=== PATIENT | female | born 1965 | race Hispanic/Latino ===

== ENCOUNTER → 2021-07-08 | Outpatient (CLI) | payer OTHER | LOC: MRI 09:42 | PROVIDERS: ATTEND Specialist | DX: M54.41 Lumbago with sciatica, right side (principal) | CPT/HCPCS: 72148 ==

== ENCOUNTER → 2022-12-19 | Outpatient (CLI) | payer OTHER | LOC: RAD 09:50 | PROVIDERS: ATTEND Family Medicine | DX: M79.672 Pain in left foot (principal) ==

== ENCOUNTER 2023-07-13 11:32 | Inpatient (IN) | payer OTHER ==
[~2023-07-13] VITALS: Ht 147.3 cm; Wt 61.7 kg
[2023-07-13] MEDS ORDERED: SODIUM CHLORIDE 0.9% 1000ML 1,000 ML IV STA (12:06)
[2023-07-13] MEDS ORDERED: KETOROLAC TROMETHAMINE 30 MG/ML VIAL ONE (12:15)
[2023-07-13] MEDS ORDERED: ONDANSETRON HCL INJ 2MG/ML 2ML 2 MG/ML VIAL ONE ×2 (12:15→17:09)
[2023-07-13] MEDS ORDERED: FAMOTIDINE 20 MG/2 ML VIAL IV ONE ×2 (12:15→12:16)
[2023-07-13] MEDS ORDERED: ONDANSETRON HCL INJ 2MG/ML 2ML 2 MG/ML VIAL IV ONE (12:15)
[2023-07-13] MEDS ORDERED: KETOROLAC TROMETHAMINE 30 MG/ML VIAL IV ONE (12:15)
[2023-07-13] MEDS ORDERED: SODIUM CHLORIDE 0.9% 1000ML 1,000 ML ONE (12:16)
[2023-07-13] MEDS ORDERED: IOPAMIDOL 370 MG/ML 100 ML INFUS..BTL INJ ONE (12:17)
[2023-07-13] MEDS ORDERED: NOVOLOG MI100 UNIT/1 SC ×2 (12:42)
[2023-07-13] MEDS ORDERED: METOPROLOL SUCC25 MG PO (12:42)
[2023-07-13] MEDS ORDERED: ASPIRIN EC81 MG PO (12:42)
[2023-07-13] MEDS ORDERED: CLOPIDOGREL75 MG PO (12:42)
[2023-07-13] MEDS ORDERED: JARDIANCE10 MG (12:42)
[2023-07-13] MEDS ORDERED: LISINOPRIL5 MG PO (12:42)
[2023-07-13] MEDS ORDERED: METFORMIN HCL500 M2 PO (12:42)
[2023-07-13] MEDS ORDERED: CRESTOR10 MG PO (12:42)
[2023-07-13] MEDS ORDERED: OMEPRAZOLE20 M1 PO (16:28)
[2023-07-13] MEDS ORDERED: MAALOX MAXIMUM355 ML PO (16:28)
[2023-07-13] MEDS ORDERED: ONDANSETRON ODT4 MG PO (16:28)
[2023-07-13] MEDS ORDERED: DIPHENHYDRAMINE HCL INJ 50 MG/ML VIAL IV PRN (17:00)
[2023-07-13] MEDS ORDERED: Morphine 4mg INJECTION 4 MG/ML INJ ONE (17:10)
[2023-07-13] MEDS ORDERED: LACTATED RINGER'S 1,000 ML ONE (17:10)
[2023-07-13] MEDS ORDERED: Morphine 4mg INJECTION 4 MG/ML INJ IV ONE (17:15)
[2023-07-13] MEDS: LACTATED RINGER'S 1,000 ML IV SCH (17:19)
[2023-07-13] MEDS: ONDANSETRON HCL INJ 2MG/ML 2ML 2 MG/ML VIAL IV PRN (17:19)
[2023-07-13 20:30] VITALS: BP 170/83; PULSE 81; RESP 17; TEMP 97.9; O2SAT 96
[2023-07-13 20:46] VITALS: BP 169/69; PULSE 81; RESP 17; TEMP 97.9; O2SAT 95
[2023-07-14] VITALS (9 sets, daily range): BP systolic 132–213; BP diastolic 59–77; PULSE 74–90; RESP 17–18; TEMP 97.9–98.1; O2SAT 93–100
[2023-07-14] MEDS: ENALAPRILAT IV INJ 1.25 MG/ML VIAL IV PRN ×2 (01:36→19:24)
[2023-07-14] MEDS: LACTATED RINGER'S 1,000 ML IV SCH (04:23)
[2023-07-14 06:26] LABS: BASOPHILS # (AUTO) 0.1 (0.0-0.1); BASOPHILS % 0.8 % (0.0-1.0); EOSINOPHILS # (AUTO) 0.3 (0.0-0.4); EOSINOPHILS % 3.6 % (0.0-6.0); HEMATOCRIT 40.5 % (34.2-44.1); HEMOGLOBIN 13.8 g/dL (12.0-16.0); LYMPHOCYTES # (AUTO) 2.4 (1.0-3.2); LYMPHOCYTES % 26.9 % (18.0-39.1); MEAN CORPUSCULAR HGB CONC 34.1 g/dL (31-35); MEAN CORPUSCULAR VOLUME 85.1 fL (81-99); MONOCYTES # (AUTO) 0.5 (0.2-0.8); MONOCYTES % 5.1 % (4.4-11.3); NEUTROPHILS # (AUTO) 5.7 (2.1-6.9); NEUTROPHILS % 63.5 % (38.7-80.0); PLATELET COUNT 181 x10e3/uL (140-360); RED BLOOD COUNT 4.76 x10e6/uL (3.6-5.1); RED CELL DISTRIBUTION WIDTH 13.3 % (11.7-14.4); WHITE BLOOD COUNT 9.01 x10e3/uL (4.8-10.8)
[2023-07-14 06:46] LABS: ALBUMIN 3.4 g/dL (3.5-5.0); ALBUMIN/GLOBULIN RATIO 1.2 (0.8-2.0); ANION GAP 15.9 mmol/L (8-16); CALCIUM 8.9 mg/dL (8.4-10.2); CREATININE, SERUM 0.76 mg/dL (0.57-1.11); POTASSIUM 3.9 mmol/L (3.5-5.1)
[2023-07-14] MEDS: HYDROMORPHONE 1MG/1ML INJ IV PRN ×2 (11:46→20:01)
[2023-07-14] MEDS: ONDANSETRON HCL INJ 2MG/ML 2ML 2 MG/ML VIAL IV PRN ×2 (11:46→20:00)
[2023-07-14] MEDS ORDERED: ALBUTEROL/IPRATROPIUM 3 ML NEB NEB PRN (21:45)
[2023-07-15] VITALS (11 sets, daily range): BP systolic 140–210; BP diastolic 58–79; PULSE 68–81; RESP 15–20; TEMP 97.6–98.1; O2SAT 93–100
[2023-07-15] MEDS: ONDANSETRON HCL INJ 2MG/ML 2ML 2 MG/ML VIAL IV PRN ×2 (05:48→15:51)
[2023-07-15] MEDS: HYDROMORPHONE 1MG/1ML INJ IV PRN ×3 (05:48→22:31)
[2023-07-15 06:23] LABS: ANION GAP 13.8 mmol/L (8-16); CALCIUM 9.1 mg/dL (8.4-10.2); CREATININE, SERUM 0.82 mg/dL (0.57-1.11); MAGNESIUM 1.7 MG/DL (1.3-2.1); POTASSIUM 3.8 mmol/L (3.5-5.1)
[2023-07-15 06:43] LABS: FREE T4 (FREE THYROXINE) 1.06 ng/dL (0.8-1.8); THYROID STIMULATING HORMONE 1.721 uIU/mL (0.350-4.940)
[2023-07-15] MEDS: SODIUM CHLORIDE 0.9% 1000ML 1,000 ML IV SCH (08:31)
[2023-07-15] MEDS: FAMOTIDINE 20 MG/2 ML VIAL IV SCH ×2 (08:32→17:02)
[2023-07-15] MEDS: NICOTINE 14 MG/EA PATCH TOP SCH (08:32)
[2023-07-15] MEDS ORDERED: MAGNESIUM SULF 1GRAM/DEXTROSE 100 ML IV ONE (10:30)
[2023-07-15] MEDS ORDERED: LIDOCAINE HCL 2% LOCAL INJ 5 ML SDV VIAL INJ ONE (13:28)
[2023-07-15] MEDS ORDERED: ROCURONIUM BROMIDE 10 MG/ML 5ML VIAL IV ONE (13:28)
[2023-07-15] MEDS ORDERED: PROPOFOL IV EMULSION 10 MG/ML 20 ML VIAL ONE (13:28)
[2023-07-15] MEDS ORDERED: SEVOFLURANE INHAL SOLN 250 ML PEN BTL ONE (13:28)
[2023-07-15] MEDS ORDERED: DEXAMETHASONE SOD PHOS INJ 4 MG/ML SDV ONE (13:28)
[2023-07-15] MEDS ORDERED: ONDANSETRON HCL INJ 2MG/ML 2ML 2 MG/ML VIAL ONE (13:28)
[2023-07-15] MEDS: CRESTOR 10MG PO SCH (20:22)
[2023-07-16] VITALS (8 sets, daily range): BP systolic 146–196; BP diastolic 51–70; PULSE 70–83; RESP 16–18; TEMP 97.5–98.5; O2SAT 93–100
[2023-07-16] MEDS: SODIUM CHLORIDE 0.9% 1000ML 1,000 ML IV SCH ×3 (00:11→17:07)
[2023-07-16] MEDS: HYDROMORPHONE 1MG/1ML INJ IV PRN ×2 (04:27→21:02)
[2023-07-16 05:56] LABS: BASOPHILS # (AUTO) 0.1 (0.0-0.1); BASOPHILS % 0.9 % (0.0-1.0); EOSINOPHILS # (AUTO) 0.4 (0.0-0.4); EOSINOPHILS % 5.6 % (0.0-6.0); HEMOGLOBIN 12.7 g/dL (12.0-16.0); LYMPHOCYTES # (AUTO) 2.4 (1.0-3.2); LYMPHOCYTES % 36.2 % (18.0-39.1); MEAN CORPUSCULAR HEMOGLOBIN 29.3 pg (28-32); MEAN CORPUSCULAR HGB CONC 34.3 g/dL (31-35); MEAN CORPUSCULAR VOLUME 85.3 fL (81-99); MONOCYTES # (AUTO) 0.5 (0.2-0.8); NEUTROPHILS # (AUTO) 3.2 (2.1-6.9); PLATELET COUNT 177 x10e3/uL (140-360); RED BLOOD COUNT 4.34 x10e6/uL (3.6-5.1); RED CELL DISTRIBUTION WIDTH 13.2 % (11.7-14.4); WHITE BLOOD COUNT 6.61 x10e3/uL (4.8-10.8)
[2023-07-16] MEDS: ENALAPRILAT IV INJ 1.25 MG/ML VIAL IV PRN ×2 (05:56→20:52)
[2023-07-16] MEDS ORDERED: BUPIVACAINE HCL 0.5% INJ 30 ML VIAL INJ ONE (06:16)
[2023-07-16 06:29] LABS: ALBUMIN 3.4 g/dL (3.5-5.0); ALBUMIN/GLOBULIN RATIO 1.3 (0.8-2.0); ANION GAP 13.2 mmol/L (8-16); CALCIUM 8.9 mg/dL (8.4-10.2); CREATININE, SERUM 0.83 mg/dL (0.57-1.11); POTASSIUM 4.2 mmol/L (3.5-5.1)
[2023-07-16] MEDS: ONDANSETRON HCL INJ 2MG/ML 2ML 2 MG/ML VIAL IV PRN ×2 (06:56→21:01)
[2023-07-16] MEDS ORDERED: HYDROCODONE/APAP 5MG-325MG TAB PO PRN (08:00)
[2023-07-16] MEDS ORDERED: ACETAMINOPHEN 325 MG TAB PO PRN (08:00)
[2023-07-16] MEDS ORDERED: ONDANSETRON HCL INJ 2MG/ML 2ML 2 MG/ML VIAL IV PRN (08:00)
[2023-07-16] MEDS ORDERED: DEXTROSE 50% SYRINGE 50 ML IV PRN (08:00)
[2023-07-16] MEDS ORDERED: HYDRALAZINE HCL 20 MG/ML VIAL ONE (08:10)
[2023-07-16] MEDS ORDERED: HYDRALAZINE HCL 20 MG/ML VIAL IV ONE ×2 (08:12)
[2023-07-16] MEDS ORDERED: ONDANSETRON HCL INJ 2MG/ML 2ML 2 MG/ML VIAL IV ONE (08:27)
[2023-07-16] MEDS ORDERED: ONDANSETRON HCL INJ 2MG/ML 2ML 2 MG/ML VIAL ONE (08:28)
[2023-07-16] MEDS ORDERED: METOPROLOL SUCCINATE 25 MG TAB XL PO SCH ×2 (09:00→17:00)
[2023-07-16] MEDS: NICOTINE 14 MG/EA PATCH TOP SCH (09:00)
[2023-07-16] MEDS: INSULIN LISPRO 100 UNIT/1 ML 3ML VIAL SQ SCH ×3 (11:30→20:47)
[2023-07-16] MEDS: FAMOTIDINE 20 MG/2 ML VIAL IV SCH ×2 (11:37→20:52)
[2023-07-16] MEDS ORDERED: FENTANYL CITRATE/PF 100MCG/2 ML INJ ONE (13:49)
[2023-07-16] MEDS: METFORMIN HCL 500 MG TAB CR PO SCH (17:05)
[2023-07-16] MEDS: CRESTOR 10MG PO SCH (20:52)
[2023-07-16] MEDS ORDERED: INSULIN ASPART 70/30 100 UNITS/ML VIAL SC SCH (21:00)
[2023-07-16] MEDS ORDERED: SIMVASTATIN 40 MG TAB PO SCH (21:00)
[2023-07-17 01:05] VITALS: PULSE 78; RESP 20; O2SAT 98
[2023-07-17] MEDS: SODIUM CHLORIDE 0.9% 1000ML 1,000 ML IV SCH (03:53)
[2023-07-17 05:24] VITALS: BP 169/65; PULSE 70; RESP 16; TEMP 97.6; O2SAT 100
[2023-07-17] MEDS: ENALAPRILAT IV INJ 1.25 MG/ML VIAL IV PRN (06:37)
[2023-07-17 07:28] LABS: BASOPHILS # (AUTO) 0.1 (0.0-0.1); BASOPHILS % 0.9 % (0.0-1.0); EOSINOPHILS # (AUTO) 0.2 (0.0-0.4); EOSINOPHILS % 2.2 % (0.0-6.0); HEMOGLOBIN 12.7 g/dL (12.0-16.0); LYMPHOCYTES # (AUTO) 3.1 (1.0-3.2); LYMPHOCYTES % 33.3 % (18.0-39.1); MEAN CORPUSCULAR HEMOGLOBIN 28.8 pg (28-32); MEAN CORPUSCULAR HGB CONC 34.3 g/dL (31-35); MEAN CORPUSCULAR VOLUME 83.9 fL (81-99); MONOCYTES # (AUTO) 0.6 (0.2-0.8); MONOCYTES % 6.2 % (4.4-11.3); NEUTROPHILS # (AUTO) 5.3 (2.1-6.9); NEUTROPHILS % 57.2 % (38.7-80.0); PLATELET COUNT 192 x10e3/uL (140-360); RED BLOOD COUNT 4.41 x10e6/uL (3.6-5.1); RED CELL DISTRIBUTION WIDTH 13.2 % (11.7-14.4); WHITE BLOOD COUNT 9.21 x10e3/uL (4.8-10.8)
[2023-07-17] MEDS: INSULIN LISPRO 100 UNIT/1 ML 3ML VIAL SQ SCH (07:30)
[2023-07-17] MEDS ORDERED: INSULIN ASPART 70/30 100 UNITS/ML VIAL SC SCH (07:30)
[2023-07-17 08:00] VITALS: BP 195/60; PULSE 76; RESP 19; TEMP 98; O2SAT 100
[2023-07-17 08:14] LABS: ALBUMIN 3.4 g/dL (3.5-5.0); ALBUMIN/GLOBULIN RATIO 1.5 (0.8-2.0); ANION GAP 11.7 mmol/L (8-16); CALCIUM 8.8 mg/dL (8.4-10.2); CREATININE, SERUM 0.79 mg/dL (0.57-1.11); MAGNESIUM 1.9 MG/DL (1.3-2.1); PHOSPHORUS 2.7 MG/DL (2.3-4.7); POTASSIUM 3.7 mmol/L (3.5-5.1)
[2023-07-17 08:36] VITALS: BP 195/60; PULSE 76; RESP 19; TEMP 98; O2SAT 100
[2023-07-17] MEDS ORDERED: EMPAGLIFLOZIN 10 MG TABLET PO SCH (09:00)
[2023-07-17] MEDS ORDERED: METOPROLOL SUCCINATE 50 MG TAB XL PO SCH (09:00)
[2023-07-17] MEDS: NICOTINE 14 MG/EA PATCH TOP SCH (09:00)
[2023-07-17] MEDS ORDERED: LISINOPRIL 2.5 MG TAB PO SCH (09:00)
[2023-07-17] MEDS: METFORMIN HCL 500 MG TAB CR PO SCH (09:53)
[2023-07-17] MEDS: FAMOTIDINE 20 MG/2 ML VIAL IV SCH (09:57)
[2023-07-17] MEDS ORDERED: ACETAMINOPHEN325 M1 PO (10:22)
[2023-07-17] MEDS ORDERED: ACETAMINOPHEN-1 EAC4 PO (11:12)
[2023-07-17 11:30] VITALS: BP 176/64; PULSE 76; RESP 18; TEMP 98.2; O2SAT 100
[2023-07-18] MEDS ORDERED: METOCLOPRAMIDE10 MG PO (23:49)
[2023-07-18] MEDS ORDERED: COLACE100 M1 PO (23:49)
[2023-07-18] MEDS ORDERED: CEPHALEXIN500 MG PO (23:49)
== END 2023-07-17 12:02 | disposition home or self-care (01) | DRG 419 ==
LOC: FSED 11:35 → ERHOLD 16:53 → MED/SURG3 18:26 → OBSVTOIN 07-15 09:00 → MED/SURG 07-16 03:50
PROVIDERS: ADMIT Internal Medicine; ATTEND Internal Medicine
PROC: 0FT44ZZ Resection of Gallbladder, Percutaneous Endoscopic Approach (ICD-10-PCS; principal; 2023-07-16 07:09)
DX: K80.00 Calculus of gallbladder with acute cholecystitis without obstruction (principal); I25.10 Atherosclerotic heart disease of native coronary artery without angina pectoris; E11.65 Type 2 diabetes mellitus with hyperglycemia; E78.5 Hyperlipidemia, unspecified; F17.200 Nicotine dependence, unspecified, uncomplicated; E78.00 Pure hypercholesterolemia, unspecified; K59.00 Constipation, unspecified; E83.42 Hypomagnesemia; I11.9 Hypertensive heart disease without heart failure; Z95.5 Presence of coronary angioplasty implant and graft; Z79.82 Long term (current) use of aspirin; Z79.02 Long term (current) use of antithrombotics/antiplatelets; Z79.4 Long term (current) use of insulin; Z79.85 Long-term (current) use of injectable non-insulin antidiabetic drugs; Z79.899 Other long term (current) drug therapy
CPT/HCPCS: 0223U; 36415; 71045; 74177; 76705; 78227; 80048; 80053; 80061; 80076; 81003; 82553; 82948; 83036; 83690; 83735; 84100; 84439; 84443; 84484; 85025; 88304; 93005; 93306; 94799; 96374; 96375; 99284; A9537; G0378; J0690; J1100; J1170; J1200; J1815; J1885; J2001; J2270; J2405; J3475; J7030; Q9967

== ENCOUNTER 2023-07-18 20:37 | Emergency (ER) | payer OTHER ==
[~2023-07-18] VITALS: Ht 147.3 cm; Wt 61.7 kg
[~2023-07-18 20:37] MED LIST: ACETAMINOPHEN-1 EAC4 PO; ACETAMINOPHEN325 M1 PO; ASPIRIN EC81 MG PO; CLOPIDOGREL75 MG PO; CRESTOR10 MG PO; JARDIANCE10 MG; LISINOPRIL5 MG PO; MAALOX MAXIMUM355 ML PO; METFORMIN HCL500 M2 PO; METOPROLOL SUCC25 MG PO; NOVOLOG MI100 UNIT/1 SC; OMEPRAZOLE20 M1 PO; ONDANSETRON ODT4 MG PO
[2023-07-18] MEDS ORDERED: ONDANSETRON HCL INJ 2MG/ML 2ML 2 MG/ML VIAL IV STA (20:59)
[2023-07-18] MEDS ORDERED: Morphine 4mg INJECTION 4 MG/ML INJ IV ONE (21:00)
[2023-07-18] MEDS ORDERED: SODIUM CHLORIDE 0.9% 1000ML 1,000 ML IV ONE (21:00)
[2023-07-18 21:10] LABS: BASOPHILS # (AUTO) 0.1 (0.0-0.1); BASOPHILS % 0.9 % (0.0-1.0); EOSINOPHILS # (AUTO) 0.3 (0.0-0.4); EOSINOPHILS % 2.9 % (0.0-6.0); HEMATOCRIT 46.5 % (34.2-44.1); HEMOGLOBIN 15.8 g/dL (12.0-16.0); LYMPHOCYTES # (AUTO) 2.1 (1.0-3.2); LYMPHOCYTES % 23.2 % (18.0-39.1); MEAN CORPUSCULAR HEMOGLOBIN 28.6 pg (28-32); MEAN CORPUSCULAR VOLUME 84.2 fL (81-99); MONOCYTES # (AUTO) 0.5 (0.2-0.8); MONOCYTES % 5.8 % (4.4-11.3); NEUTROPHILS % 67.1 % (38.7-80.0); PLATELET COUNT 199 x10e3/uL (140-360); RED BLOOD COUNT 5.52 x10e6/uL (3.6-5.1); RED CELL DISTRIBUTION WIDTH 13.1 % (11.7-14.4); WHITE BLOOD COUNT 8.98 x10e3/uL (4.8-10.8)
[2023-07-18 21:30] LABS: ALBUMIN/GLOBULIN RATIO 1.1 (0.8-2.0); ANION GAP 15.7 mmol/L (8-16); CREATININE, SERUM 0.87 mg/dL (0.57-1.11); POTASSIUM 3.7 mmol/L (3.5-5.1)
[2023-07-18 21:41] LABS: CALCIUM 10.3 mg/dL (8.4-10.2)
[2023-07-18 21:42] LABS: ALBUMIN 4.3 g/dL (3.5-5.0)
[2023-07-18 21:56] LABS: CLARITY,URINE CLOUDY (CLEAR); COLOR,URINE YELLOW (YELLOW)
[2023-07-18 21:57] LABS: KETONES,URINE NEGATIVE (NEGATIVE); LEUKOCYTE ESTERASE ,URINE NEGATIVE (NEGATIVE); NITRITE,URINE NEGATIVE (NEGATIVE); PROTEIN,URINE DIPSTICK >=300 (NEGATIVE); URINE UROBILINOGEN 1 mg/dL (0.2 - 1)
[2023-07-18 22:04] LABS: BACTERIA,URINE MANY /HPF; EPITHELIAL CELLS,URINE MODERATE /LPF; RENAL EPITHELIAL CELLS,URINE FEW; TRANSITIONAL EPI CELLS,URINE FEW; WBC,URINE (MAN) >50 /HPF (0-5)
[2023-07-18] MEDS ORDERED: COLACE100 M1 PO (23:49)
[2023-07-18] MEDS ORDERED: METOCLOPRAMIDE10 MG PO (23:49)
[2023-07-18] MEDS ORDERED: CEPHALEXIN500 MG PO (23:49)
[2023-07-19] MEDS ORDERED: METOPROLOL TARTRATE 25 MG TAB PO ONE (00:15)
[2023-07-19] MEDS ORDERED: IOPAMIDOL 370 MG/ML 100 ML INFUS..BTL INJ ONE (01:28)
[2023-07-19 01:36] VITALS: BP 167/76; PULSE 77; O2SAT 97
== END 2023-07-19 01:25 | disposition home or self-care (01) ==
LOC: ER 20:40
DX: R10.30 Lower abdominal pain, unspecified (principal); N39.0 Urinary tract infection, site not specified; K59.00 Constipation, unspecified; R11.2 Nausea with vomiting, unspecified; E11.65 Type 2 diabetes mellitus with hyperglycemia; I10 Essential (primary) hypertension; E78.5 Hyperlipidemia, unspecified; I25.10 Atherosclerotic heart disease of native coronary artery without angina pectoris; Z95.5 Presence of coronary angioplasty implant and graft
CPT/HCPCS: 36415; 74177; 80053; 81001; 83690; 85025; 87086; 93005; 99284; J0696; J2270; J2405; J7030; Q9967

== ENCOUNTER → 2023-07-27 | Outpatient (REF) | payer OTHER ==
[~2023-07-27] MED LIST changes: +CEPHALEXIN500 MG PO; +COLACE100 M1 PO; +METOCLOPRAMIDE10 MG PO
== END ==
LOC: US 12:11
PROVIDERS: ATTEND Family Medicine
DX: R10.9 Unspecified abdominal pain (principal); R11.10 Vomiting, unspecified
CPT/HCPCS: 76700